=== PATIENT | male | born 1985 | race Caucasian/White ===

== ENCOUNTER 2019-01-18 20:45 | Emergency (ER) | payer BC ==
[~2019-01-18] VITALS: Ht 172.7 cm; Wt 88.5 kg
[2019-01-18] MEDS ORDERED: CYMBALTA60 MG PO (21:01)
[2019-01-18] MEDS ORDERED: NORCO 5-325 TA1 EAC1 PO (21:41)
[2019-01-18 21:53] VITALS: BP 148/82
== END 2019-01-18 21:53 | disposition home or self-care (01) ==
LOC: M.ERS 20:45
DX: S30.0XXA Contusion of lower back and pelvis, initial encounter (principal); F32.9 Major depressive disorder, single episode, unspecified; W10.8XXA Fall (on) (from) other stairs and steps, initial encounter; Y93.89 Activity, other specified; Y92.89 Other specified places as the place of occurrence of the external cause; Y99.8 Other external cause status

== ENCOUNTER 2019-08-15 13:29 | Emergency (ER) | payer BC ==
[~2019-08-15] VITALS: Ht 172.7 cm; Wt 86.2 kg
[~2019-08-15 13:29] MED LIST: CYMBALTA60 MG PO; NORCO 5-325 TA1 EAC1 PO
[2019-08-15] MEDS ORDERED: NORCO 5-325 TA1 EAC1 PO (15:07)
[2019-08-15 15:31] VITALS: BP 144/95
== END 2019-08-15 15:32 | disposition home or self-care (01) ==
LOC: M.ERS 13:29
DX: S93.492A Sprain of other ligament of left ankle, initial encounter (principal); W00.0XXA Fall on same level due to ice and snow, initial encounter; Y93.89 Activity, other specified; Y92.89 Other specified places as the place of occurrence of the external cause; Y99.8 Other external cause status

== ENCOUNTER 2019-09-27 12:59 | Emergency (ER) | payer BC ==
[~2019-09-27] VITALS: Ht 172.7 cm; Wt 86.2 kg
[2019-09-27] MEDS ORDERED: NORCO 5-325 TA1 EAC1 PO (14:13)
[2019-09-27 14:15] VITALS: BP 144/87
== END 2019-09-27 14:16 | disposition home or self-care (01) ==
LOC: M.ERS 12:59
DX: S80.12XA Contusion of left lower leg, initial encounter (principal); F32.9 Major depressive disorder, single episode, unspecified; Y08.89XA Assault by other specified means, initial encounter; Y93.89 Activity, other specified; Y92.89 Other specified places as the place of occurrence of the external cause; Y99.8 Other external cause status

== ENCOUNTER 2020-01-03 17:35 | Emergency (ER) | payer OTHER ==
[~2020-01-03] VITALS: Ht 172.7 cm; Wt 89.8 kg
[2020-01-03 18:03] LABS: URINE BILIRUBIN NEGATIVE (Negative); URINE BLOOD 3+ (Negative); URINE CLARITY CLEAR; URINE COLOR YELLOW; URINE GLUCOSE-RANDOM NEGATIVE (Negative); URINE KETONES NEGATIVE (Negative); URINE LEUKOCYTES-REFLEX NEGATIVE (Negative); URINE NITRITE-REFLEX NEGATIVE (Negative); URINE PROTEIN TRACE (Negative); URINE SPECIFIC GRAVITY >= 1.030 (1.005-1.030); URINE UROBILINOGEN 0.2 E.U./dl (0.2-1.0)
[2020-01-03 18:25] LABS: URINE RBC >20 Many /HPF (0-2)
[2020-01-03 18:26] LABS: MUCUS 4-6 Moderate strn/LPF (None Seen); URINE WBC-REFLEX 0-5 Rare /HPF (0-5)
[2020-01-03 18:27] LABS: BACTERIA-REFLEX None Seen /HPF (None Seen); CASTS None Seen /LPF (None Seen); CRYSTALS None Seen /LPF (None Seen); SQUAMOUS 0-3 Few /LPF (0-3)
[2020-01-03 18:41] LABS: ABSOLUTE EOSINOPHILS 0.2 thou/uL (0.0-0.7); ABSOLUTE LYMPHOCYTES 2.3 thou/uL (0.8-5.3); ABSOLUTE MONOCYTES 0.6 thou/uL (0.0-1.2); ABSOLUTE NEUTROPHILS 4.2 thou/uL (1.6-8.1); BASOPHILS 0.5 %; EOSINOPHILS 3.4 %; HEMATOCRIT 39.9 % (42.0-52.0); HEMOGLOBIN 13.9 gm/dL (14.0-18.0); LYMPHOCYTES 31.6 %; MCH 28.2 pg (26.0-34.0); MCHC 34.8 g/dL (28.0-37.0); MCV 80.8 fL (80.0-100.0); MONOCYTES 7.8 %; MPV 7.8 fl. (7.2-11.1); NUCLEATED RBCS 0 /100WBC; PLATELET COUNT* 237 thou/uL (150-400); POLYS 56.7 %; RBC 4.93 mil/uL (4.50-6.00); RDW-CV 12.6 % (10.5-14.5); WBC 7.4 thou/uL (4.0-11.0)
[2020-01-03 18:49] LABS: CALCIUM 8.5 mg/dL (8.5-10.1); POTASSIUM 3.7 mmol/L (3.5-5.1)
[2020-01-03 18:54] LABS: ALBUMIN 3.9 g/dL (3.4-5.0); TOTAL BILIRUBIN 0.7 mg/dL (<0.1-1.0); TOTAL PROTEIN 6.9 g/dL (6.4-8.2)
[2020-01-03] MEDS ORDERED: NORCO 5-325 TA1 EAC1 PO (19:08)
[2020-01-03] MEDS ORDERED: FLOMAX0.4 MG PO (19:08)
[2020-01-03] MEDS ORDERED: KEFLEX500 M1 PO (19:08)
[2020-01-03 19:19] VITALS: BP 131/70
== END 2020-01-03 19:20 | disposition home or self-care (01) ==
LOC: M.ERS 17:35
PROVIDERS: Family Medicine
DX: N20.0 Calculus of kidney (principal); F32.9 Major depressive disorder, single episode, unspecified

== ENCOUNTER 2020-02-25 18:17 | Emergency (ER) | payer OTHER ==
[~2020-02-25] VITALS: Ht 172.7 cm; Wt 83.9 kg
[~2020-02-25 18:17] MED LIST changes: +FLOMAX0.4 MG PO; +KEFLEX500 M1 PO
[2020-02-25 18:44] LABS: URINE BILIRUBIN NEGATIVE (Negative); URINE BLOOD NEGATIVE (Negative); URINE CLARITY CLEAR; URINE COLOR YELLOW; URINE GLUCOSE-RANDOM NEGATIVE (Negative); URINE KETONES NEGATIVE (Negative); URINE LEUKOCYTES-REFLEX NEGATIVE (Negative); URINE NITRITE-REFLEX NEGATIVE (Negative); URINE PROTEIN 1+ (Negative); URINE SPECIFIC GRAVITY >= 1.030 (1.005-1.030); URINE UROBILINOGEN 0.2 E.U./dl (0.2-1.0)
[2020-02-25 19:58] LABS: ABSOLUTE BASOPHILS 0.1 thou/uL (0.0-0.2); ABSOLUTE EOSINOPHILS 0.3 thou/uL (0.0-0.7); ABSOLUTE LYMPHOCYTES 2.2 thou/uL (0.8-5.3); ABSOLUTE MONOCYTES 0.8 thou/uL (0.0-1.2); ABSOLUTE NEUTROPHILS 6.5 thou/uL (1.6-8.1); BASOPHILS 0.5 %; EOSINOPHILS 3.1 %; HEMATOCRIT 43.1 % (42.0-52.0); HEMOGLOBIN 15.2 gm/dL (14.0-18.0); LYMPHOCYTES 22.2 %; MCH 28.6 pg (26.0-34.0); MCHC 35.3 g/dL (28.0-37.0); MCV 80.9 fL (80.0-100.0); MONOCYTES 8.1 %; MPV 8.2 fl. (7.2-11.1); NUCLEATED RBCS 0 /100WBC; PLATELET COUNT* 251 thou/uL (150-400); POLYS 66.1 %; RBC 5.34 mil/uL (4.50-6.00); RDW-CV 12.6 % (10.5-14.5); WBC 9.9 thou/uL (4.0-11.0)
[2020-02-25 20:08] LABS: CALCIUM 8.5 mg/dL (8.5-10.1)
[2020-02-25 20:13] LABS: ALBUMIN 3.5 g/dL (3.4-5.0); TOTAL BILIRUBIN 0.5 mg/dL (<0.1-1.0); TOTAL PROTEIN 6.3 g/dL (6.4-8.2)
[2020-02-25] MEDS ORDERED: DOXYCYCLINE 10100 MG PO (21:32)
[2020-02-25] MEDS ORDERED: NORCO 5-325 TA1 EAC2 PO (21:36)
[2020-02-25 22:11] VITALS: BP 144/96
== END 2020-02-25 22:14 | disposition home or self-care (01) ==
LOC: M.ERS 18:17
PROVIDERS: Personal Emergency Response Attendant; Physician Assistant
DX: N43.3 Hydrocele, unspecified (principal); R30.0 Dysuria; R35.0 Frequency of micturition; F32.9 Major depressive disorder, single episode, unspecified; Z87.442 Personal history of urinary calculi

== ENCOUNTER 2020-03-03 13:51 | Emergency (ER) | payer OTHER ==
[~2020-03-03] VITALS: Ht 172.7 cm; Wt 83.9 kg
[~2020-03-03 13:51] MED LIST changes: +DOXYCYCLINE 10100 MG PO; +NORCO 5-325 TA1 EAC2 PO
[2020-03-03 14:22] LABS: ABSOLUTE EOSINOPHILS 0.2 thou/uL (0.0-0.7); ABSOLUTE LYMPHOCYTES 1.4 thou/uL (0.8-5.3); ABSOLUTE MONOCYTES 0.5 thou/uL (0.0-1.2); ABSOLUTE NEUTROPHILS 7.5 thou/uL (1.6-8.1); BASOPHILS 0.5 %; EOSINOPHILS 1.9 %; HEMATOCRIT 42.8 % (42.0-52.0); HEMOGLOBIN 14.8 gm/dL (14.0-18.0); LYMPHOCYTES 14.7 %; MCH 28.2 pg (26.0-34.0); MCHC 34.6 g/dL (28.0-37.0); MCV 81.5 fL (80.0-100.0); MONOCYTES 5.5 %; MPV 7.9 fl. (7.2-11.1); NUCLEATED RBCS 0 /100WBC; PLATELET COUNT* 272 thou/uL (150-400); POLYS 77.4 %; RBC 5.25 mil/uL (4.50-6.00); RDW-CV 12.7 % (10.5-14.5); WBC 9.7 thou/uL (4.0-11.0)
[2020-03-03 14:32] LABS: CALCIUM 8.7 mg/dL (8.5-10.1); CREATININE 1.3 mg/dL (0.6-1.3); POTASSIUM 4.2 mmol/L (3.5-5.1)
[2020-03-03 14:37] LABS: ALBUMIN 3.9 g/dL (3.4-5.0); TOTAL PROTEIN 7.1 g/dL (6.4-8.2)
[2020-03-03] MEDS ORDERED: FLOMAX0.4 MG PO (15:59)
[2020-03-03] MEDS ORDERED: ONDANSETRON ODT4 MG PO (15:59)
[2020-03-03] MEDS ORDERED: NORCO 5-325 TA1 EAC2 PO (15:59)
[2020-03-03 16:16] LABS: URINE BILIRUBIN NEGATIVE (Negative); URINE BLOOD 2+ (Negative); URINE CLARITY CLEAR; URINE COLOR YELLOW; URINE GLUCOSE-RANDOM NEGATIVE (Negative); URINE KETONES NEGATIVE (Negative); URINE LEUKOCYTES-REFLEX NEGATIVE (Negative); URINE NITRITE-REFLEX NEGATIVE (Negative); URINE PROTEIN TRACE (Negative); URINE UROBILINOGEN 0.2 E.U./dl (0.2-1.0)
[2020-03-03 16:28] LABS: BACTERIA-REFLEX >30 Many /HPF (None Seen); MUCUS 4-6 Moderate strn/LPF (None Seen); SQUAMOUS 0-3 Few /LPF (0-3); URINE WBC-REFLEX 0-5 Rare /HPF (0-5)
[2020-03-03 16:29] LABS: CRYSTALS None Seen /LPF (None Seen)
[2020-03-03 16:30] LABS: HYALINE CASTS 0-3 Few /LPF (None Seen)
[2020-03-03 16:48] VITALS: BP 141/91
== END 2020-03-03 16:49 | disposition home or self-care (01) ==
LOC: M.ERS 13:51
PROVIDERS: Physician Assistant
DX: N20.0 Calculus of kidney (principal)

== ENCOUNTER 2020-10-03 16:52 | Emergency (ER) | payer OTHER ==
[~2020-10-03] VITALS: Ht 172.7 cm; Wt 86.2 kg
[~2020-10-03 16:52] MED LIST changes: +ONDANSETRON ODT4 MG PO
[2020-10-03] MEDS ORDERED: NORCO5 PO (18:02)
[2020-10-03] MEDS ORDERED: IBUPROFEN 600600 M1 PO (18:02)
[2020-10-03 18:17] VITALS: BP 128/87
== END 2020-10-03 18:17 | disposition home or self-care (01) ==
LOC: M.ERS 16:52
DX: M79.662 Pain in left lower leg (principal); Z87.442 Personal history of urinary calculi

== ENCOUNTER 2020-10-13 18:07 | Emergency (ER) | payer OTHER ==
[~2020-10-13] VITALS: Ht 172.7 cm; Wt 86.2 kg
[~2020-10-13 18:07] MED LIST changes: +IBUPROFEN 600600 M1 PO; +NORCO5 PO
[2020-10-13 18:59] LABS: CALCIUM 9.7 mg/dL (8.5-10.1); POTASSIUM 3.9 mmol/L (3.5-5.1)
[2020-10-13 20:49] VITALS: BP 147/87
[2020-10-13] MEDS ORDERED: HYDROCODON-ACE1 EAC8 PO (20:50)
== END 2020-10-13 20:50 | disposition home or self-care (01) ==
LOC: M.ERS 18:07
PROVIDERS: Emergency Medicine Emergency Medical Services
DX: M79.662 Pain in left lower leg (principal); R22.42 Localized swelling, mass and lump, left lower limb; Z87.442 Personal history of urinary calculi

== ENCOUNTER 2021-04-20 18:56 | Emergency (ER) | payer OTHER ==
[~2021-04-20] VITALS: Ht 172.7 cm; Wt 86.2 kg
[~2021-04-20 18:56] MED LIST changes: +HYDROCODON-ACE1 EAC8 PO
[2021-04-20] MEDS ORDERED: NAPROSYN500 MG PO (20:12)
[2021-04-20] MEDS ORDERED: ATIVAN0.5 M1 PO (20:23)
[2021-04-20 20:58] VITALS: BP 138/64
== END 2021-04-20 20:58 | disposition home or self-care (01) ==
LOC: M.ERS 18:56
DX: S63.8X1A Sprain of other part of right wrist and hand, initial encounter (principal); F41.9 Anxiety disorder, unspecified; Z87.442 Personal history of urinary calculi; Z79.899 Other long term (current) drug therapy; W18.30XA Fall on same level, unspecified, initial encounter; Y93.89 Activity, other specified; Y92.89 Other specified places as the place of occurrence of the external cause; Y99.9 Unspecified external cause status